=== PATIENT | female | born 1955 | race Caucasian/White ===

== ENCOUNTER 2023-03-19 16:50 | Inpatient (IN) | payer BC, OTHER ==
[~2023-03-19] VITALS: Ht 157.5 cm; Wt 54.9 kg
[2023-03-19 17:08] VITALS: BP_SYST 169; PULSE 57; RESP 20; TEMP 97.4; O2SAT 96
[2023-03-19 18:08] LABS: COVID19 ANTIGEN SOFIA FIA NEGATIVE (NEGATIVE)
[2023-03-19 18:10] LABS: INFLUENZA TYPE A negative (NEGATIVE); INFLUENZA TYPE B NEGATIVE (NEGATIVE)
[2023-03-19] MEDS ORDERED: IPRATROPIUM/ALBUTEROL SULFATE 3 ML AMPUL.NEB (DUONEB) INH ONE ×2 (18:30→19:15)
[2023-03-19 19:30] LABS: BASOPHILS # (AUTO) 0.1 K/uL (0.0-0.2); BASOPHILS % (AUTO) 0.6 % (0.0-2.0); EOSINOPHILS # (AUTO) 0.5 K/uL (0.0-0.4); HEMATOCRIT 44.7 % (36-48); HEMOGLOBIN 15.2 g/dL (12.0-16.0); LYMPHOCYTES # (AUTO) 0.5 K/uL (1.0-5.5); MEAN CORPUSCULAR HEMOGLOBIN 31 pg (27-31); MEAN CORPUSCULAR HGB CONC 34 % (32-36); MEAN CORPUSCULAR VOLUME 90 fL (79.0-98.0); MONOCYTES # (AUTO) 0.2 K/uL (0.0-1.0); MONOCYTES % (AUTO) 2.8 % (1.7-9.3); NEUTROPHILS # (AUTO) 6.5 K/uL (1.8-7.7); NEUTROPHILS % (AUTO) 83.6 % (40.0-70.0); PLATELET COUNT (AUTO) 328 K/uL (130-430); RED BLOOD CELL COUNT(AUTO) 4.94 MIL/uL (4.2-6.2); RED CELL DISTRIBUTION WIDTH 13.7 % (9.0-15.0); WHITE BLOOD COUNT (AUTO) 7.8 K/uL (4.8-10.8)
[2023-03-19 19:39] LABS: ANION GAP 10 (5-15); CALCIUM 8.5 mg/dL (8.4-11.0); CARBON DIOXIDE 27 mmol/L (23-29); CHLORIDE 89 mmol/L (98-107); CREATININE 0.75 mg/dL (0.55-1.30); GFR AFRICAN AMERICAN 99 mL/min (>90); GFR NON AFRICAN-AMERICAN 82 mL/min (>90); GLUCOSE 103 mg/dL (74-106); POTASSIUM 3.1 mmol/L (3.5-5.1); SODIUM SERUM 126 mmol/L (136-145); UREA NITROGEN, BLOOD 7 mg/dL (8-21)
[2023-03-19 19:48] LABS: ALANINE AMINOTRANSFERASE 27 U/L (12-78); ASPARTATE AMINOTRANSFERASE 18 U/L (10-37); TOTAL BILIRUBIN 0.7 mg/dL (0.0-1.0); TOTAL PROTEIN, SERUM 7.1 g/dL (6.4-8.3)
[2023-03-19] MEDS ORDERED: POTASSIUM CHLORIDE 20 MEQ TAB.PRT.SR PO ONE (20:00)
[2023-03-19] MEDS ORDERED: methylPREDNISolone SOD SUCC/PF 62.5 MG/ML VIAL IVP ONE (21:45)
[2023-03-19] MEDS ORDERED: ONDANSETRON HCL 4 MG/2 ML VIAL IVP PRN (22:30)
[2023-03-19] MEDS ORDERED: ALPR0.255 PO (22:36)
[2023-03-19] MEDS ORDERED: ATOR40TA68 PO (22:36)
[2023-03-19] MEDS ORDERED: BUPR300T46 PO (22:36)
[2023-03-20] VITALS (8 sets, daily range): BP systolic 122–169; PULSE 61–78; RESP 16–20; TEMP 98.1–98.4; O2SAT 94–98
[2023-03-20] MEDS ORDERED: METHYLPREDNISOLONE SOD SUCC 40 MG/ML VIAL IVP SCH (06:00)
[2023-03-20] MEDS ORDERED: ACETAMINOPHEN 325 MG TABLET PO ONE (06:30)
[2023-03-20] MEDS: BUDESONIDE 0.5 MG/2 ML AMPUL.NEB INH SCH ×2 (07:40→21:08)
[2023-03-20] MEDS: IPRATROPIUM/ALBUTEROL SULFATE 3 ML AMPUL.NEB (DUONEB) INH SCH ×3 (07:40→21:08)
[2023-03-20 08:18] LABS: BASOPHILS % (AUTO) 0.2 % (0.0-2.0); EOSINOPHILS % (AUTO) 0.2 % (0.0-4.0); HEMOGLOBIN 14.6 g/dL (12.0-16.0); LYMPHOCYTES # (AUTO) 0.4 K/uL (1.0-5.5); LYMPHOCYTES % (AUTO) 5.2 % (20.5-51.5); MEAN CORPUSCULAR HEMOGLOBIN 31 pg (27-31); MEAN CORPUSCULAR HGB CONC 34 % (32-36); MEAN CORPUSCULAR VOLUME 90 fL (79.0-98.0); MONOCYTES # (AUTO) 0.1 K/uL (0.0-1.0); MONOCYTES % (AUTO) 1.7 % (1.7-9.3); NEUTROPHILS # (AUTO) 7.8 K/uL (1.8-7.7); NEUTROPHILS % (AUTO) 92.7 % (40.0-70.0); PLATELET COUNT (AUTO) 333 K/uL (130-430); RED BLOOD CELL COUNT(AUTO) 4.76 MIL/uL (4.2-6.2); RED CELL DISTRIBUTION WIDTH 13.7 % (9.0-15.0); WHITE BLOOD COUNT (AUTO) 8.4 K/uL (4.8-10.8)
[2023-03-20 08:38] LABS: CALCIUM 8.3 mg/dL (8.4-11.0); CREATININE 0.76 mg/dL (0.55-1.30); POTASSIUM 3.5 mmol/L (3.5-5.1)
[2023-03-20 08:42] LABS: ALBUMIN 3.6 g/dL (3.4-4.8); TOTAL BILIRUBIN 0.5 mg/dL (0.0-1.0); TOTAL PROTEIN, SERUM 6.8 g/dL (6.4-8.3)
[2023-03-20] MEDS: AZITHROMYCIN 500 MG in NS 250 ML IV SCH (12:41)
[2023-03-20] MEDS: guaiFENesin ER 600 MG TAB PO SCH ×2 (12:41→22:08)
[2023-03-20] MEDS: MORPHINE 2 MG/ML INJ. SYRINGE IVP PRN ×2 (13:18→22:49)
[2023-03-20] MEDS: ATORVASTATIN 20 MG TABLET PO SCH (22:08)
[2023-03-20] MEDS: METHYLPREDNISOLONE SOD SUCC 40 MG/ML VIAL IVP SCH (22:08)
[2023-03-21] VITALS (11 sets, daily range): BP systolic 100–147; PULSE 58–78; RESP 16–18; TEMP 96.9–98.9; O2SAT 91–100
[2023-03-21 06:08] LABS: BASOPHILS # (AUTO) 0.1 K/uL (0.0-0.2); BASOPHILS % (AUTO) 0.4 % (0.0-2.0); EOSINOPHILS % (AUTO) 0.1 % (0.0-4.0); ERYTHROCYTE SEDIMENTATION RATE 3 MM/HR (0-20); HEMATOCRIT 40.6 % (36-48); HEMOGLOBIN 13.8 g/dL (12.0-16.0); LYMPHOCYTES # (AUTO) 0.4 K/uL (1.0-5.5); LYMPHOCYTES % (AUTO) 2.8 % (20.5-51.5); MEAN CORPUSCULAR HEMOGLOBIN 31 pg (27-31); MEAN CORPUSCULAR HGB CONC 34 % (32-36); MEAN CORPUSCULAR VOLUME 90 fL (79.0-98.0); MONOCYTES # (AUTO) 0.4 K/uL (0.0-1.0); MONOCYTES % (AUTO) 3.4 % (1.7-9.3); NEUTROPHILS % (AUTO) 93.3 % (40.0-70.0); PLATELET COUNT (AUTO) 344 K/uL (130-430); RED CELL DISTRIBUTION WIDTH 13.9 % (9.0-15.0); WHITE BLOOD COUNT (AUTO) 12.9 K/uL (4.8-10.8)
[2023-03-21 06:17] LABS: CALCIUM 8.2 mg/dL (8.4-11.0); CREATININE 0.82 mg/dL (0.55-1.30); POTASSIUM 3.5 mmol/L (3.5-5.1)
[2023-03-21] MEDS: METHYLPREDNISOLONE SOD SUCC 40 MG/ML VIAL IVP SCH (06:24)
[2023-03-21] MEDS: IPRATROPIUM/ALBUTEROL SULFATE 3 ML AMPUL.NEB (DUONEB) INH SCH ×5 (07:34→23:10)
[2023-03-21] MEDS ORDERED: BUPROPION HCL PO SCH (09:00)
[2023-03-21] MEDS: ALPRAZolam 0.25 MG TABLET PO SCH (09:00)
[2023-03-21] MEDS: BUDESONIDE 0.5 MG/2 ML AMPUL.NEB INH SCH ×2 (09:26→19:41)
[2023-03-21] MEDS: buPROPion HCL 150 MG XL TAB PO SCH (09:49)
[2023-03-21] MEDS: guaiFENesin ER 600 MG TAB PO SCH ×2 (09:50→20:49)
[2023-03-21] MEDS: AZITHROMYCIN 500 MG in NS 250 ML IV SCH (09:50)
[2023-03-21] MEDS ORDERED: AMPICILLIN SODIUM/SULBACTAM NA 3 GM in NS 100 ML IV ONE (12:30)
[2023-03-21] MEDS ORDERED: methylPREDNISolone SOD SUCC/PF 62.5 MG/ML VIAL IVP ONE (13:30)
[2023-03-21] MEDS ORDERED: METHYLPREDNISOLONE SOD SUCC 40 MG/ML VIAL IVP ONE (13:30)
[2023-03-21] MEDS: ACETAMINOPHEN 325 MG TABLET PO PRN ×2 (13:35→20:50)
[2023-03-21] MEDS: AMPICILLIN SODIUM/SULBACTAM NA 3 GM in NS 100 ML IV SCH (18:27)
[2023-03-21] MEDS: methylPREDNISolone SOD SUCC/PF 62.5 MG/ML VIAL IVP SCH (18:29)
[2023-03-21] MEDS: ATORVASTATIN 20 MG TABLET PO SCH (20:49)
[2023-03-22] VITALS (12 sets, daily range): BP systolic 116–146; PULSE 60–70; RESP 17–20; TEMP 96.6–98.3; O2SAT 34–98
[2023-03-22] MEDS: methylPREDNISolone SOD SUCC/PF 62.5 MG/ML VIAL IVP SCH ×5 (00:26→23:01)
[2023-03-22] MEDS: AMPICILLIN SODIUM/SULBACTAM NA 3 GM in NS 100 ML IV SCH ×5 (00:28→23:01)
[2023-03-22] MEDS: IPRATROPIUM/ALBUTEROL SULFATE 3 ML AMPUL.NEB (DUONEB) INH SCH ×6 (03:00→23:05)
[2023-03-22 06:07] LABS: BASOPHILS % (AUTO) 0.1 % (0.0-2.0); HEMATOCRIT 39.6 % (36-48); HEMOGLOBIN 13.3 g/dL (12.0-16.0); LYMPHOCYTES # (AUTO) 0.3 K/uL (1.0-5.5); LYMPHOCYTES % (AUTO) 3.5 % (20.5-51.5); MEAN CORPUSCULAR HEMOGLOBIN 31 pg (27-31); MEAN CORPUSCULAR HGB CONC 34 % (32-36); MEAN CORPUSCULAR VOLUME 92 fL (79.0-98.0); MONOCYTES # (AUTO) 0.3 K/uL (0.0-1.0); MONOCYTES % (AUTO) 2.6 % (1.7-9.3); NEUTROPHILS # (AUTO) 9.4 K/uL (1.8-7.7); NEUTROPHILS % (AUTO) 93.8 % (40.0-70.0); PLATELET COUNT (AUTO) 324 K/uL (130-430); RED BLOOD CELL COUNT(AUTO) 4.32 MIL/uL (4.2-6.2); RED CELL DISTRIBUTION WIDTH 13.9 % (9.0-15.0)
[2023-03-22 06:12] LABS: ALBUMIN 3.2 g/dL (3.4-4.8); CALCIUM 7.5 mg/dL (8.4-11.0); CREATININE 0.75 mg/dL (0.55-1.30); POTASSIUM 3.2 mmol/L (3.5-5.1); TOTAL BILIRUBIN 0.4 mg/dL (0.0-1.0); TOTAL PROTEIN, SERUM 5.8 g/dL (6.4-8.3)
[2023-03-22 06:22] LABS: ERYTHROCYTE SEDIMENTATION RATE 1 MM/HR (0-20)
[2023-03-22] MEDS: BUDESONIDE 0.5 MG/2 ML AMPUL.NEB INH SCH ×2 (08:40→20:21)
[2023-03-22] MEDS: AZITHROMYCIN 500 MG in NS 250 ML IV SCH (09:26)
[2023-03-22] MEDS: buPROPion HCL 150 MG XL TAB PO SCH (09:27)
[2023-03-22] MEDS: guaiFENesin ER 600 MG TAB PO SCH ×2 (09:27→20:04)
[2023-03-22] MEDS: ALPRAZolam 0.25 MG TABLET PO SCH (09:27)
[2023-03-22] MEDS: ACETAMINOPHEN 325 MG TABLET PO PRN (09:40)
[2023-03-22] MEDS ORDERED: POTASSIUM CHLORIDE 20 MEQ TAB.PRT.SR PO ONE (12:00)
[2023-03-22] MEDS: ATORVASTATIN 20 MG TABLET PO SCH (20:04)
[2023-03-23] VITALS (13 sets, daily range): BP systolic 132–160; PULSE 67–74; RESP 18–20; TEMP 97.3–98.4; O2SAT 92–97
[2023-03-23] MEDS: IPRATROPIUM/ALBUTEROL SULFATE 3 ML AMPUL.NEB (DUONEB) INH SCH ×6 (02:52→23:23)
[2023-03-23 05:02] LABS: ERYTHROCYTE SEDIMENTATION RATE 1 MM/HR (0-20)
[2023-03-23 05:15] LABS: BASOPHILS % (AUTO) 0.1 % (0.0-2.0); HEMATOCRIT 37.1 % (36-48); HEMOGLOBIN 12.6 g/dL (12.0-16.0); LYMPHOCYTES # (AUTO) 0.3 K/uL (1.0-5.5); LYMPHOCYTES % (AUTO) 3.6 % (20.5-51.5); MEAN CORPUSCULAR HEMOGLOBIN 31 pg (27-31); MEAN CORPUSCULAR HGB CONC 34 % (32-36); MEAN CORPUSCULAR VOLUME 91 fL (79.0-98.0); MONOCYTES # (AUTO) 0.3 K/uL (0.0-1.0); MONOCYTES % (AUTO) 3.8 % (1.7-9.3); NEUTROPHILS # (AUTO) 7.6 K/uL (1.8-7.7); NEUTROPHILS % (AUTO) 92.5 % (40.0-70.0); PLATELET COUNT (AUTO) 301 K/uL (130-430); RED BLOOD CELL COUNT(AUTO) 4.09 MIL/uL (4.2-6.2); WHITE BLOOD COUNT (AUTO) 8.2 K/uL (4.8-10.8)
[2023-03-23 05:22] LABS: CALCIUM 7.1 mg/dL (8.4-11.0); CREATININE 0.81 mg/dL (0.55-1.30); POTASSIUM 3.6 mmol/L (3.5-5.1)
[2023-03-23] MEDS: methylPREDNISolone SOD SUCC/PF 62.5 MG/ML VIAL IVP SCH ×2 (06:07→14:05)
[2023-03-23] MEDS: AMPICILLIN SODIUM/SULBACTAM NA 3 GM in NS 100 ML IV SCH ×3 (06:07→17:53)
[2023-03-23] MEDS: AZITHROMYCIN 500 MG in NS 250 ML IV SCH (09:00)
[2023-03-23] MEDS: ALPRAZolam 0.25 MG TABLET PO SCH (09:00)
[2023-03-23] MEDS: guaiFENesin ER 600 MG TAB PO SCH ×2 (09:00→21:26)
[2023-03-23] MEDS: buPROPion HCL 150 MG XL TAB PO SCH (09:01)
[2023-03-23] MEDS: BUDESONIDE 0.5 MG/2 ML AMPUL.NEB INH SCH ×2 (11:06→21:13)
[2023-03-23 16:36] LABS: ABG O2 SAT% ESTIMATE 95.6 % (94.0-100.0); BLOOD GAS BASE EXCESS -0.1 mmol/L (-3.0-3.0); BLOOD GAS HCO3 21.7 mmol/L (21.0-27.0); BLOOD GAS PCO2 28.3 mmHg (35.0-45.0); BLOOD GAS PO2 69.7 mmHg (75.0-100.0)
[2023-03-23 16:37] LABS: BLOOD GAS PH 7.503 (7.350-7.450)
[2023-03-23] MEDS ORDERED: CALCIUM CARBONATE 650 MG TABLET PO SCH (21:00)
[2023-03-23] MEDS: ATORVASTATIN 20 MG TABLET PO SCH (21:26)
[2023-03-23] MEDS: METHYLPREDNISOLONE SOD SUCC 40 MG/ML VIAL IVP SCH (22:37)
[2023-03-24] VITALS (8 sets, daily range): BP systolic 134–150; PULSE 67–70; RESP 14–18; TEMP 96.9–98.6; O2SAT 92–96
[2023-03-24] MEDS: AMPICILLIN SODIUM/SULBACTAM NA 3 GM in NS 100 ML IV SCH ×3 (00:03→12:28)
[2023-03-24] MEDS: IPRATROPIUM/ALBUTEROL SULFATE 3 ML AMPUL.NEB (DUONEB) INH SCH ×4 (03:00→15:32)
[2023-03-24] MEDS: ACETAMINOPHEN 325 MG TABLET PO PRN (05:26)
[2023-03-24] MEDS: METHYLPREDNISOLONE SOD SUCC 40 MG/ML VIAL IVP SCH (06:04)
[2023-03-24 07:34] LABS: BASOPHILS % (AUTO) 0.1 % (0.0-2.0); EOSINOPHILS % (AUTO) 0.1 % (0.0-4.0); HEMATOCRIT 38.9 % (36-48); HEMOGLOBIN 12.8 g/dL (12.0-16.0); LYMPHOCYTES # (AUTO) 0.4 K/uL (1.0-5.5); LYMPHOCYTES % (AUTO) 5.2 % (20.5-51.5); MEAN CORPUSCULAR HEMOGLOBIN 31 pg (27-31); MEAN CORPUSCULAR HGB CONC 33 % (32-36); MEAN CORPUSCULAR VOLUME 93 fL (79.0-98.0); MONOCYTES # (AUTO) 0.6 K/uL (0.0-1.0); MONOCYTES % (AUTO) 7.1 % (1.7-9.3); NEUTROPHILS # (AUTO) 7.3 K/uL (1.8-7.7); NEUTROPHILS % (AUTO) 87.5 % (40.0-70.0); PLATELET COUNT (AUTO) 312 K/uL (130-430); RED BLOOD CELL COUNT(AUTO) 4.21 MIL/uL (4.2-6.2); RED CELL DISTRIBUTION WIDTH 14.1 % (9.0-15.0); WHITE BLOOD COUNT (AUTO) 8.3 K/uL (4.8-10.8)
[2023-03-24 07:41] LABS: ALBUMIN 2.9 g/dL (3.4-4.8); CREATININE 0.97 mg/dL (0.55-1.30); TOTAL BILIRUBIN 0.4 mg/dL (0.0-1.0); TOTAL PROTEIN, SERUM 5.4 g/dL (6.4-8.3)
[2023-03-24] MEDS: BUDESONIDE 0.5 MG/2 ML AMPUL.NEB INH SCH (07:58)
[2023-03-24 08:00] LABS: ERYTHROCYTE SEDIMENTATION RATE 3 MM/HR (0-20)
[2023-03-24] MEDS ORDERED: CALCIUM 500 MG/TAB PO SCH (09:00)
[2023-03-24] MEDS: buPROPion HCL 150 MG XL TAB PO SCH (10:03)
[2023-03-24] MEDS: AZITHROMYCIN 500 MG in NS 250 ML IV SCH (10:03)
[2023-03-24] MEDS: ALPRAZolam 0.25 MG TABLET PO SCH (10:03)
[2023-03-24] MEDS: guaiFENesin ER 600 MG TAB PO SCH (10:03)
[2023-03-24] MEDS ORDERED: PRED10TA PO (13:03)
[2023-03-24] MEDS ORDERED: AMOX-423 PO (13:03)
[2023-03-24] MEDS ORDERED: PRED20TA PO (13:03)
[2023-03-24] MEDS ORDERED: DIF100 PO (13:03)
[2023-03-24 19:06] LABS: MYCOPLASMA PNEUMONIAE IgM <770 U/mL (0-769)
== END 2023-03-24 16:50 | disposition home or self-care (01) | DRG 193 ==
LOC: SED 16:50 → STU 22:18 → SMU 03-22 15:34
PROVIDERS: ADMIT Preventive Medicine Preventive Medicine/Occupational Environmental Medicine; ATTEND Preventive Medicine Preventive Medicine/Occupational Environmental Medicine
DX: J18.9 Pneumonia, unspecified organism (principal); J96.01 Acute respiratory failure with hypoxia; J44.1 Chronic obstructive pulmonary disease with (acute) exacerbation; E87.1 Hypo-osmolality and hyponatremia; J44.0 Chronic obstructive pulmonary disease with (acute) lower respiratory infection; E44.0 Moderate protein-calorie malnutrition; E87.6 Hypokalemia; E83.51 Hypocalcemia; R73.9 Hyperglycemia, unspecified; Z20.822 Contact with and (suspected) exposure to COVID-19; I25.10 Atherosclerotic heart disease of native coronary artery without angina pectoris; J20.9 Acute bronchitis, unspecified; I10 Essential (primary) hypertension; Z87.891 Personal history of nicotine dependence; Z86.16 Personal history of COVID-19; Z88.1 Allergy status to other antibiotic agents; Z88.2 Allergy status to sulfonamides; Z88.8 Allergy status to other drugs, medicaments and biological substances; Z79.899 Other long term (current) drug therapy; Z68.22 Body mass index [BMI] 22.0-22.9, adult
CPT/HCPCS: 36415; 36600; 71045; 71250-TC; 76376; 80048; 80053; 82785; 82803; 83605; 83880; 84484; 85025; 85651-TC; 86606; 86738; 87040; 87070-TC; 87101; 87205-TC; 87305; 87449; 93005; 94640; 94760; 96365; 99285; G0378; J0295; J0456; J1030; J1956; J2270; J2405; J2930; J7050; J7626

== ENCOUNTER 2023-11-25 23:10 | Emergency (ER) | payer BC ==
[~2023-11-25] VITALS: Ht 157.5 cm; Wt 55.3 kg
[~2023-11-25 23:10] MED LIST: ALPR0.255 PO; AMOX-423 PO; ATOR40TA68 PO; BUPR300T46 PO; DIF100 PO; PRED10TA PO; PRED20TA PO
[2023-11-25 23:19] VITALS: BP_SYST 167; PULSE 67; RESP 16; TEMP 98.5; O2SAT 98
[2023-11-26] MEDS: predniSONE 20 MG TABLET PO ONE (00:39)
[2023-11-26] MEDS: DIPHENHYDRAMINE HCL 25 MG CAPSULE PO ONE (00:39)
[2023-11-26] MEDS: KETOROLAC TROMETHAMINE 60 MG/2 ML VIAL IM ONE (00:40)
[2023-11-26] MEDS ORDERED: DIPH25CA83 PO (02:14)
[2023-11-26] MEDS ORDERED: TRAM50TA2 PO (02:14)
[2023-11-26] MEDS ORDERED: PRED20TA PO (02:14)
[2023-11-26 02:30] VITALS: BP_SYST 149; PULSE 60; RESP 16; TEMP 97.2; O2SAT 96
== END 2023-11-26 02:30 | disposition home or self-care (01) ==
LOC: SED 23:10
DX: M54.2 Cervicalgia (principal); J44.9 Chronic obstructive pulmonary disease, unspecified; I10 Essential (primary) hypertension; Z88.1 Allergy status to other antibiotic agents; Z88.2 Allergy status to sulfonamides; Z88.8 Allergy status to other drugs, medicaments and biological substances; Z79.899 Other long term (current) drug therapy; Z79.2 Long term (current) use of antibiotics
CPT/HCPCS: 99285; 72125; 96372; Q0163; J7512; J1885